=== PATIENT | female | born 1990 | race Caucasian/White ===

== ENCOUNTER 2024-04-18 08:13 | Emergency (ER) | payer OTHER, SELFPAY ==
--- NOTE | ~2024-04-18 | XR_ITS ---
XR chest 2V Ordering provider: Flo Green APRN History: 33 years Female with . productive cough x 2 weeks . Comparison: February 02, 2019 FINDINGS: MEDIASTINUM: The cardiac silhouette is not enlarged. LUNGS: No infiltrates, effusions or pneumothorax. OTHER: No free air under the diaphragm. IMPRESSION: No acute cardiopulmonary pathology. Reviewed, dictated and finalized at location A. E WELL OPERATOR
[2024-04-18 08:33] VITALS: BP 105/83; PULSE 83; RESP 16; TEMP 36.8; O2SAT 100
--- NOTE | 2024-04-18 08:36 | ED.URI ---
HPI - URI/Sore Throat General Chief Complaint: Upper Respiratory Infection Stated Complaint: Sore Throat/Cough Time Seen by Provider: 04/18/24 08:35 Source: patient Mode of arrival: ambulatory Limitations: no limitations History of Present Illness HPI Narrative: Rosalind is a 33 year female patient presenting to the clinic today with complaints of productive cough, lump in her throat, nasal congestion, and feeling as though her breathing isn't right-wheezing over the last 2 weeks. Reports she is coughing up some yellow phlegm. Has been taking an old prescription of Augmentin that is 2 years old-has been taking approximately 5 days worth. Started to feel better but has now fell as though she is becoming more ill while taking the antibiotic MD elicited complaint: sore throat and nasal congestion Related Data Home Medications ?Medication ?Instructions ?Recorded ?Confirmed ?Last Taken ?Type drospirenone 3 mg-ethinyl 1 tablet PO DAILY 12/06/23 12/06/23 Unknown History estradiol 0.02 mg tablet (Vestura (28)) Allergies Allergy/AdvReac Type Severity Reaction Status Date / Time poison hugo extract Allergy Unknown Unknown Verified 12/06/23 11:16 No Known Allergies Allergy Verified 12/06/23 11:16 Review of Systems Review of Systems: Pertinent positives per HPI. Patient denies any fever, chills, rash, headache, visual changes, dizziness, chest pain, palpitations, nausea, vomiting, diarrhea, constipation, abdominal pain, or any urinary issues. [facility] Past Medical History Medical History Normal endoscopy Family History Family History Mother Depression Grandparent Cerebrovascular accident Family history of coronary artery disease Social History Social History Smoking status: Never smoker Second hand tobacco smoke exposure: No Smoking end date: 05/09/13 Alcohol intake: current Substance use: never Substance use type: does not use Lack of Transportation: No Lack of Food: Never True Current Housing: I Have Housing Concerned About Future Housing: No Difficulty Paying Gas/Electric Bills: No Difficulty Paying for Meds: No Currently Unemployed: No Education: Bachelor's Degree Difficulty w/ Childcare or Family Care: No Gender identity (if verbalized by the patient): Female Sexual Orientation (if Verbalized by the Patient): Straight or Heterosexual Spiritual care concerns: No Agree to blood products: Yes Comments At the time of my signature, I reviewed and agree with the nursing past medical, surgical, social, and family history. There is no relevant family history pertinent to the patient complaint. Exam Narrative: General: Well-developed, well nourished, in no apparent distress Head: Normocephalic, atraumatic Eyes: Pupils equally round and reactive to light bilaterally, EOM intact, sclera and conjunctive clear, no discharge, lids normal Ears: TMs intact and clear, ear canals clear, no drainage, grossly hearing normal. Nose: Nares patent, clear nasal discharge, mild inflammation, no sinus tenderness. Mouth: Oral pharynx without lesions or masses, good dentition, MMM. Postnasal drip Neck: Supple, trachea midline, no enlargement of anterior or posterior cervical nodes, no thyroid masses or goiter palpable. Cardio: Regular rate and rhythm, s1 and s2 normal, no murmur appreciated. Resp: Clear to auscultation bilaterally, no rhonchi, rales, wheezing or rubs Course Course Emergency Course: Portions of this record may have been created with voice recognition software. Level of Care: Express Care Visit Vital Signs Vital signs: Vital Signs Temperature 36.8 C 04/18/24 08:33 Pulse Rate 83 04/18/24 08:33 Respiratory Rate 16 04/18/24 08:33 Blood Pressure 105/83 04/18/24 08:33 Pulse Oximetry 100 04/18/24 08:33 Temperature 36.8 C 04/18/24 08:33 Pulse Rate 83 04/18/24 08:33 Respiratory Rate 16 04/18/24 08:33 Blood Pressure 105/83 04/18/24 08:33 Pulse Oximetry 100 04/18/24 08:33 Vital signs reviewed MDM - URI/Sore Throat MDM Narrative Medical decision making narrative: At the time of visit patient is resting comfortably on the exam table. Patient appears to be nontoxic. Labs: Strep test was negative in the clinic today. We will send for culture. Diagnostics: Chest x-rays negative for any acute cardiopulmonary process. Plan: I suspect patient has bronchitis. Prescription for albuterol inhaler, azithromycin, and prednisone was sent to the pharmacy. Supportive measures were discussed with the patient and they voiced understanding discharge instructions and agrees to treatment plan. Return precautions reviewed Differential Diagnosis Differential diagnosis: Likely upper respiratory infection, otitis media, sinusitis, viral infection, bronchitis, influenza, pharyngitis and other (COVID) Imaging Data Radiologist's impression: ITS Impressions Chest X-Ray 04/18/24 08:50 IMPRESSION: No acute cardiopulmonary pathology. Discharge Plan Discharge Clinical Impression: Bronchitis Patient Disposition: Home, Self-Care Condition: Stable Instructions: Antibiotic Form, Acute Bronchitis (ED) Additional Instructions: Chest x-rays negative for any acute cardiopulmonary process Strep test is negative in the clinic today. We will send for culture. Stop taking the old Augmentin medication that your taking. Take prescription medications only as prescribed-albuterol inhaler, prednisone, and azithromycin Increase fluids and stay well hydrated Tylenol/motrin for pain/fever Flonase and OTC antihistamines as directed Vicks vapor rub to open sinuses Sinus rinses for congestion Cepacol spray, cough drops, throat lozenges, warm tea with honey/lemon, gargle salt water to soothe throat BRAT diet for diarrhea Clear liquids x 24 hours then advance as tolerated for nausea/vomiting Go to the ED if you develop a worsening in your condition- high fever not controlled by Tylenol or Motrin, dehydration, weakness, lethargy, shortness of breath, or chest pain. Follow up with your PCP in 3-5 days if symptoms persist. Patient Language: Occitan Prescriptions: New azithromycin 250 mg tablet See Rx Instructions .ROUTE .COMPLEX Qty: 6 0RF Rx Instructions: For 250 mg dose pack: take 500 mg today (day 1), then 250 mg for 4 days (days 2-5) prednisone 20 mg tablet 40 mg PO DAILY 5 Days Qty: 10 0RF albuterol sulfate 90 mcg/actuation HFA aerosol inhaler 2 puff inhalation Q4-6H PRN (Reason: shortness of breath or wheezing) 30 Days Qty: 8.5 0RF No Action drospirenone-ethinyl estradiol [Vestura (28)] 3-0.02 mg tablet 1 tablet PO DAILY Follow-up/Referrals: Uma Quintanilla MD [Primary Care Provider] - Stand Alone Forms: Work/School Release IP Time of Disposition: 08:57 Quality [facility] Nursing Documentation ED NIHSS nursing documentation: reviewed/agree
[2024-04-18 09:40] LABS: EDSTREPNEGPOS1 Negative (Negative)
== END 2024-04-18 09:01 | disposition home or self-care (01) ==
PROVIDERS: Emergency Provider Nurse Practitioner Family; PCP Family Medicine
DX: J40 Bronchitis, not specified as acute or chronic (principal); Z87.891 Personal history of nicotine dependence
CPT/HCPCS: 71046; 87081; 87880; 99213; G0463

== ENCOUNTER 2024-04-26 14:36 | Outpatient (CLI) | payer OTHER, SELFPAY ==
[2024-04-26 15:31] LABS: Alanine Aminotransferase 20 U/L (6-35); Aspartate Amino Transferase 24 U/L (14-36)
== END 2024-04-26 14:37 | disposition home or self-care (01) ==
LOC: ANHLAB 14:38
PROVIDERS: PCP Family Medicine; Visit Provider Podiatrist Foot & Ankle Surgery
DX: B35.1 Tinea unguium (principal)
CPT/HCPCS: 36415; 84450; 84460

== ENCOUNTER 2024-09-18 16:13 | Outpatient (CLI) | payer OTHER, SELFPAY ==
--- OUTSIDE RECORDS SUMMARY | 2024-09-18 16:17 | XMS_ITS | Clinical Summary ---
Author Organization [facility] Address [address] [place] [address] Care Team Providers Care Desk Pens Assembler Name Role Phone Uma Quintanilla MD Primary Care Provider [phone] Allergies No known active allergies Medications Vestura, 28, 3-0.02 mg per tablet Take 1 tablet by mouth daily 11/10/2023 Active Active Problems No known active problems Immunizations Immunization Administration Dates Next Due Tdap 12/08/2021 Medical History Medical History Date Comments Heartburn Social History Tobacco Use Types Packs/Day Years Used Date Smoking Tobacco: Never Smokeless Tobacco: Never Tobacco Cessation:Counseling Given: Not Answered Comments No Sex and Gender Information Value Date Recorded Sex Assigned at Not on file 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 Gender Identity Not on file Sexual Orientation Not on file Obstetrics History Last Filed Vital Signs Vital Sign Reading Time Taken Comments Blood Pressure 125/80 11/29/2023 8:06 AM CDT Pulse 78 11/29/2023 8:06 AM CDT Temperature 36.6 C (97.8 F) 11/29/2023 8:06 AM CDT Respiratory Rate 20 11/29/2023 8:06 AM CDT Oxygen Saturation 99% 11/29/2023 8:06 AM CDT Inhaled Oxygen Concentration - - Weight 60.3 kg (133 lb) 11/29/2023 8:06 AM CDT Height 167.6 cm (5' 6 ) 11/29/2023 8:06 AM CDT Body Mass Index 21.47 11/29/2023 8:06 AM CDT Plan of Treatment Health Maintenance Due Date Last Done Comments Cervical Cancer Screening 1990 Depression Screening 1990 Hepatitis C Screening 1990 Varicella Vaccines (1 of 2 - 13+ 2-dose series) 11/04/2003 Regular Well Visit/Exam 18-64 2008 Influenza Vaccine (#1) 2024 02/21/2018 DTaP/Tdap/Td Vaccine (7 - Td or Tdap) 12/09/2031 12/08/2021, 11/25/1995, 05/15/1992, Additional history exists Hepatitis B Screening Completed 01/17/2001 , 07/18/2000, 06/15/2000 HPV Vaccines Aged Out No longer eligi ble based on patient's age to complete this topic Pneumococcal vaccine <65 Aged Out No longer eligible based on patient's age to complete this topic Insurance [employer] Care Teams Desk Pens Assembler Relationship Specialty Start Date End Date Uma Quintanilla MD PCP - General 04/10/19
--- OUTSIDE RECORDS SUMMARY | 2024-09-18 16:17 | XMS_ITS ---
Author Organization [facility] Address [address] [facility] [address] [place] [address] Care Team Providers Care Buttermaker Helper Name Role Phone Uma Quintanilla MD Primary Care Provider UnavailPayam Koehler Unavailable [phone] Annabelle Webber Unavailable [phone] Allergies No Known Allergies Results Component Value Reference Range Notes LIPASE Reviewed date:09/29/2023 10:38:31 AM Interpretation: Performing Lab:[id number] Lamont Riley MD Notes/Report: NON-FASTING NON-FASTING NON-FASTING NON-FASTING NON-FASTING LIPASE 18 7-60 U/L AMYLASE Reviewed date:09/29/2023 10:38:13 AM Interpretation: Performing Lab:[facility] [id number] Lamont Riley MD Notes/Report: NON-FASTING NON-FASTING NON-FASTING NON-FASTING NON-FASTING AMYLASE 51 21-101 U/L CMP: COMPLETE METABOLIC PANE L Reviewed date:09/29/2023 10:38:45 AM Interpretation: Performing Lab:[facility] [id number] Lamont Riley MD Notes/Report: NON-FASTING NON-FASTING NON-FASTING NON-FASTING NON-FASTING GLUCOSE 87 65-99 mg/dL Fasting reference interval UREA NITROGEN (BUN) 12 7-25 mg/dL CREATININE 0.78 0.50-0.97 mg/dL EGFR 103 > OR = 60 mL/min/1.73m2 BUN/CREATININE RATIO SEE NOTE: 6-22 (calc) Not Reported: BUN and Creatinine are within reference range. SODIUM 139 135-146 mmol/L POTASSIUM 4.1 3.5-5.3 mmol/L CHLORIDE 106 98-110 mmol/L CARBON DIOXIDE 23 20-32 mmol/L CALCIUM 8.9 8.6-10.2 mg/dL PROTEIN, TOTAL 6.6 6.1-8.1 g/dL ALBUMIN 4.1 3.6-5.1 g/dL GLOBULIN 2.5 1.9-3.7 g/dL (calc) ALBUMIN/GLOBULIN RATIO 1.6 1.0-2.5 (calc) BILIRUBIN, TOTAL 0.3 0.2-1.2 mg/dL ALKALINE PHOSPHATASE 48 31-125 U/L AST 14 10-30 U/L ALT 17 6-29 U/L CBC With Differential/Platel et Reviewed date:09/29/2023 10:58:03 AM Interpretation: Performing Lab:[facility], [id number], [id number] Lamont Riley MD Notes/Report: NON-FASTING NON-FASTING NON-FASTING NON-FASTING NON-FASTING WHITE BLOOD CELL COUNT 9.0 3.8-10.8 Thousand/ uL RED BLOOD CELL COUNT 4.48 3.80-5.10 Million/uL HEMOGLOBIN 13.0 11.7-15.5 g/dL HEMATOCRIT 40.0 35.0-45.0 % MCV 89.3 80.0-100.0 fL MCH 29.0 27.0-33.0 pg MCHC 32.5 32.0-36.0 g/dL RDW 12.2 11.0-15.0 % PLATELET COUNT 95 140-400 Thousand/uL MPV 12.2 7.5-12.5 fL ABSOLUTE NEUTROPHILS 5958 4262-3200 cells/uL ABSOLUTE LYMPHOCYTES 2367 850-3900 cells/uL ABSOLUTE MONOCYTES 549 200-950 cells/uL ABSOLUTE EOSINOPHILS 72 15-500 cells/uL ABSOLUTE BASOPHILS 54 0-200 cells/uL NEUTROPHILS 66.2 LYMPHOCYTES 26.3 MONOCYTES 6.1 EOSINOPHILS 0.8 BASOPHILS 0.6 CRP Reviewed date:09/29/2023 10:38:22 AM Interpretation: Performing Lab:[place], [id number]iz, [id number] Lamont Riley MD Notes/Report: NON-FASTING NON-FASTING NON-FASTING NON-FASTING NON-FASTING C-REACTIVE PROTEIN <3.0 <8.0 mg/L Ultrasound ABDOMEN COMPLETE Reviewed date:09/29/2023 09:54:53 AM Interpretation: Performing Lab: Notes/Report: REASON FOR VISIT Diarrhea, Abdominal Pain, Bloating, Belching, Change in Stool Color Medications Medication SIG (Take, Route, Frequency, Duration) Notes Start Date End Date Status OTC/Vitamins prebiotic/probiotic Active Social History Tobacco Use: Social History Observation Description Date Details (start date - stop date) Former Smoker NA - NA Tobacco Use/Smoking Question Answer Notes Are you a former smoker How long has it been since you last smoked? 5-10 years Problems Problem Type SNOMED Code ICD Code Onset Dates Problem Status W/U Status Risk Notes Problem [id number] Nausea and vomiting (R11.2) Active confirmed Problem 384778103 Bloating (R14.0) Active confirmed Vital Signs Height 66 in 09/27/2023 Weight 131 lbs 09/27/2023 BMI 21.14 kg/m2 09/27/2023 Encounters Encounter Location Date Provider Diagnosis [facility], [address] May [address] [place] [id number] 09/27/2023 Annabelle Schild Bloating R14.0 ; Nausea and vomiting R11.2 and Nonulcer dyspepsia K30 Assessments Encounter Date Diagnosis (ICD Code) Assessment Notes Treatment Notes Treatment Clinical Notes Section Notes 09/27/2023 Bloating (ICD-10 - R14.0) NAUSEA/VOMITING /BLOATING: She had a recent episode of nausea and vomiting followed by several days of bloating after eating [employer]aco [employer]. Symptoms sound consistent with food poisoning. She followed a bland diet for several days and is happy to report that most of the symptoms have resolved. NONULCER DYSPEPSIA: She has a history of chronic nonulcer dyspepsia with symptoms of abdominal discomfort, bloating, and belching. Remote endoscopy and esophageal manometry study in 2019 were unrevealing. She had minimal improvement with buspirone so she discontinued it. 09/27/2023 Nausea and vomiting (ICD-10 - R11.2) NAUSEA/VOMITING /BLOATING: She had a recent episode of nausea and vomiting followed by several days of bloating after eating [employer]. Symptoms sound consistent with food poisoning. She followed a bland diet for several days and is happy to report that most of the symptoms have resolved. NONULCER DYSPEPSIA: She has a history of chronic nonulcer dyspepsia with symptoms of abdominal discomfort, bloating, and belching. Remote endoscopy and esophageal manometry study in 2019 were unrevealing. She had minimal improvement with buspirone so she discontinued it. 09/27/2023 Nonulcer dyspepsia (ICD-10 - K30) NAUSEA/VOMITING /BLOATING: She had a recent episode of nausea and vomiting followed by several days of bloating after eating Taco Sanders. Symptoms sound consistent with food poisoning. She followed a bland diet for several days and is happy to report that most of the symptoms have resolved. NONULCER DYSPEPSIA: She has a history of chronic nonulcer dyspepsia with symptoms of abdominal discomfort, bloating, and belching. Remote endoscopy and esophageal manometry study in 2019 were unrevealing. She had minimal improvement with buspirone so she discontinued it. 09/27/2023 Other After my visit with Ms. Aguirre, I recommend the followin. 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 2. She was encouraged to continue her probiotic and to take Pepcid for 4 to 6 weeks to help with lingering stomach irritation. 3. She will obtain labs including CBC, CMP, CRP, amylase, and lipase. 4. Schedule complete abdominal ultrasound. 5. She will report any new or alarming symptoms. 6. Further thoughts to follow. NAUSEA/VOMITING /BLOATING: She had a recent episode of nausea and vomiting followed by several days of bloating after eating [employer]. Symptoms sound consistent with food poisoning. She followed a bland diet for several days and is happy to report that most of the symptoms have resolved. NONULCER DYSPEPSIA: She has a history of chronic nonulcer dyspepsia with symptoms of abdominal discomfort, bloating, and belching. Remote endoscopy and esophageal manometry study in 2019 were unrevealing. She had minimal improvement with buspirone so she discontinued it. Plan Of Treatment Next Appt Details Follow Up: prn, Reason: Progress Notes * Rosalind AGUIRRE PDOB: [birth year] (32 yo F)Acc No.[id number]:09/27/2023 Patient: Rosalind Glass Provider: VAUGHN Clarke :1990 A ge:32 Y S ex:Female Date:09/27/2023 Address:[address] [facility] [address] [place], [place] [id number] Pcp:Uma Quintanilla MD Subjective: * Chief Complaints: * D iarrheaAbdominal PainBloatingBelchingChange in Stool Color * HPI: H PI: Ms. Aguirre is a pleasant 32-year-old female previously seen for probable nonulcer dyspepsia. She had initial improvement with buspirone a few years ago, but ultimately discontinued the medication because she did not think it was significantly helpful. She was seen in the office in January because her dentist told her she had signs of acid reflux. She has a history of chronic belching, but denies classic symptoms of reflux. Prior endoscopy in 2018 was normal. At her appointment in January last year, she was started on pantoprazole 40 mg daily, but discontinued the medication after a month, because she had no change in symptoms. She also had a negative celiac blood test, SIBO breath test, and pancreatic elastase. A bout 2 weeks ago she ate Taco Sanders late at night and woke up at 2 AM vomiting. She had multiple vomiting episodes over the course of several hours. For about 5 days afterward she experienced significant abdominal bloating, belching, and sour taste in her mouth. She tried taking Tums, but did not have any improvement. She also reported having shailesh colored stools for several days. She followed a bland diet for a couple of days. T sander, she reports that her bloating has improved. She is no longer experiencing any nausea or vomiting episodes. Her bowel movements are still very loose, but have returned to a normal brown color. She denies having any melena or hematochezia. She has been taking a prebiotic and probiotic for the past month. * ROS: G I Bleeding: Melena N o. H ematochezia N o. H ematemesis No. A nemia N o. G I-Stomach: Nausea/Emesis N o. P ain N o. P UD N o. Anorexia N o. G I-Esophageal: Dysphagia N o. O dynophagia N o. C hest Pain No. G ER Sx Y es. G I-Liver/GB: Jaundice N o. H epatitis N o. G allstones N o. P ancreatitis N o. G I-Colon: Colitis/IBS Y es. D iarrhea N o. C onstipation N o. H emorrhoids N o. G eneral/Constitutional: Fever N o. C hills N o. W eight Loss N o. S kin: Rash N o. P ruritus N o. I cterus N o. P hotosensitivity N o. E NT: Diplopia N o. V isual Loss N o. T innitus N o. V ertigo N o. D eafness N o. P oor Dentition N o. H ematology: Easy Bruising N o. H emophilia N o. H ematologic Malignancy N o. L ymphadenopathy N o. H istory of Petechia N o. A nemia No. C ardiovascular: Palpitations N o. S yncope N o. P ND N o. LUX N o. O rthopnea N o. C hest Pain N o. R espiratory: Cough N o. S putum Production N o. H emoptysis No. W heezing N o. T B N o. S OB N o. N eurologic: Stroke N o. S eizure Disorder N o. T remor N o. P aralysis N o. S yncope N o. G enitourinary: Dysuria N o. P olyuria N o. I ncontinence N o. R enal Failure N o. H ematuria N o. M usculoskeletal: Joint Pain N o. S welling N o. S tiffness N o. M uscle Weakness N o. M yalgia N o. E ndocrine: Thyroid Disease N o. D iabetes N o. P olyphagia No. P olydipsia N o. P sychiatric: Delusions N o. H allucinations N o. S uicidal Ideations N o. A llergy/Immunology: Hives N o. C hronic Sinusitis N o. H istory of Anaphylaxis N o. * Medical History: * Surgical History: E ndoscopy:Normal exam. 03/2019Suction Curettage for Axillary Hyperhidrosis * Hospitalization/Major Diagno stic Procedure: D enies Past Hospitalization * Family History: N on-Contributory. Denies family history of colon cancer and colon polyps. * Social History: T obacco Use: T obacco Use/Smoking A re you a f ormer smoker H ow long has it been since you last smoked? 5-10 years D rugs/Alcohol: D o you Drink Alcohol?: Yes, Occasionally. Drugs: No. Do you Smoke Marijuana?: No. S ocial History: M arital Status: Single. 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 Children: None. * Medications: T akingOTC/Vitamins , Notes: prebiotic/probioticMedication List reviewed and reconciled with the patientTaking OTC/Vitamins , Notes: prebiotic/probioticMedication List reviewed and reconciled with the patient * Allergies: N .K.D.A.no[Allergies Verified] Objective: * Vitals: H t: 66 in, Wt:131 lbs, BMI:21.14 Index. * Examination: P hysical Examination: GENERAL: P leasant. Appears stated age, in no apparent distress. SKIN: N o rash, ecchymoses, petechial, or telangiectasia. HEENT: Normocephalic, EOMI, Nasal & buccal mucosa clear. NECK: Supple without masses., Normal Range of Motion, No jugular venous distention. LYMPH NODES: No cervical, supraclavicular, or axillary lymphadenopathy. CARDIAC: RRR without murmur, gallop, or rub. PULMONARY: Clear to auscultation and percussion bilaterally. ABDOMEN: B S positive, soft, non-tender, No masses, organomegaly, rebound, or ascites. EXTREMITIES: N o cyanosis, clubbing, or edema. NEUROLOGIC: A lert and oriented x3, No asterixis, Nonfocal examination. C QM Exceptions: Influenza Vaccine not administered: Declan payne: M edical Reason T ype of Medical Reason: N ot indicated Pneumococcal Vaccine not administered: Declan payne: M edical Reason T ype of Medical Reason: N ot indicated Assessment: * Assessment: 1. N ausea and vomiting - R11.2 (Primary) 2 . B loating - R14.0 3 . N onulcer dyspepsia - K30 NAUSEA/VOMITING/BLOATING: Sh prerna had a recent episode of nausea and vomiting followed by several days of bloating after eating [employer]aco Sanders. Symptoms sound consistent with food poisoning. She followed a bland diet for several days and is happy to report that most of the symptoms have resolved. NONULCER DYSPEPSIA: She has a history of chronic nonulcer dyspepsia with symptoms of abdominal discomfort, bloating, and belching. Remote endoscopy and esophageal manometry study in 2019 were unrevealing. She had minimal improvement with buspirone so she discontinued it. Plan: * Treatment: 2. B loating I maging: Ultrasound ABDOMEN COMPLETE 3. O thers Clinical Notes: After my visit with Ms. Aguirre, I recommend the followin. 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 2. She was encouraged to continue her probiotic and to take Pepcid for 4 to 6 weeks to help with lingering stomach irritation. 3. She will obtain labs including CBC, CMP, CRP, amylase, and lipase. 4. Schedule complete abdominal ultrasound. 5. She will report any new or alarming symptoms. 6. Further thoughts to follow. * Procedure Codes: 3 6415 VENIPUNCT, ROUTINE*[id number] BILINGUAL OFFICE ASSISTANT Office Visit, Est Pt., Level 3 * Preventive Medicine: Counseling: B mi Care goal follow-up plan: BMI management provided N o * Follow Up: p rn * Images: * Sign off status: Completed true * Provider: VAUGHN Clarke Date: 09/27/2023 Generated for Bubba reyes/Ricardo/Edwina on: 0 09/18/2024 04:17 PM CDT
--- OUTSIDE RECORDS SUMMARY | 2024-09-18 16:17 | XMS_ITS | Patient Health Record ---
Author Organization [employer] Address [address] [facility] [address] [place] [address] Care Team Providers Care Building Performance Consultant Name Role Phone Uma Quintanilla MD Primary Care Provider UnavailPayam Koehler Unavailable [phone] Annabelle Webber Unavailable [phone] Allergies No Known Allergies Results Component Value Reference Range Notes LIPASE Reviewed date:09/29/2023 10:38:31 AM Interpretation: Performing Lab:[facility]Michael [id number] Lamont Riley MD Notes/Report: NON-FASTING NON-FASTING NON-FASTING NON-FASTING NON-FASTING LIPASE 18 7-60 U/L AMYLASE Reviewed date:09/29/2023 10:38:13 AM Interpretation: Performing Lab:[facility]Michael [id number] Lamont Riley MD Notes/Report: NON-FASTING NON-FASTING NON-FASTING NON-FASTING NON-FASTING AMYLASE 51 21-101 U/L CMP: COMPLETE METABOLIC PANE L Reviewed date:09/29/2023 10:38:45 AM Interpretation: Performing Lab:[facility]Michael [id number] Lamont Riley MD Notes/Report: NON-FASTING NON-FASTING NON-FASTING [...] et Reviewed date:09/29/2023 10:58:03 AM Interpretation: Performing Lab:[place], [facility]-[id number] Kaz Galo, [id number] Lamont Riley MD Notes/Report: NON-FASTING NON-FASTING NON-FASTING NON-FASTING NON-FASTING WHITE BLOOD CELL COUNT 9.0 3.8-10.8 Thousand/ uL RED BLOOD CELL COUNT 4.48 3.80-5.10 Million/uL HEMOGLOBIN 13.0 11.7-15.5 g/dL HEMATOCRIT 40.0 35.0-45.0 % MCV 89.3 80.0-100.0 fL MCH 29.0 27.0-33.0 pg MCHC 32.5 32.0-36.0 g/dL RDW 12.2 11.0-15.0 % PLATELET COUNT 95 140-400 Thousand/uL MPV 12.2 7.5-12.5 fL ABSOLUTE NEUTROPHILS 5958 1144-1178 cells/uL ABSOLUTE LYMPHOCYTES 2367 850-3900 cells/uL ABSOLUTE MONOCYTES 549 200-950 cells/uL ABSOLUTE EOSINOPHILS 72 15-500 cells/uL ABSOLUTE BASOPHILS 54 0-200 cells/uL NEUTROPHILS 66.2 LYMPHOCYTES 26.3 MONOCYTES 6.1 EOSINOPHILS 0.8 BASOPHILS 0.6 CRP Reviewed date:09/29/2023 10:38:22 AM Interpretation: Performing Lab:[place], [id number] Kaz Ortiz, [id number] Lamont Riley MD Notes/Report: NON-FASTING NON-FASTING NON-FASTING NON-FASTING NON-FASTING C-REACTIVE PROTEIN <3.0 <8.0 mg/L Ultrasound ABDOMEN COMPLETE Reviewed date:09/29/2023 09:54:53 AM Interpretation: Performing Lab: Notes/Report: Reason For Referral No Information Medications Medication SIG (Take, Route, Frequency, Duration) Notes Start Date End Date Status OTC/Vitamins prebiotic/probiotic Active Social History Tobacco Use: Social History Observation Description Date Details (start date - stop date) Former Smoker NA - NA Tobacco Use/Smoking Question Answer Notes Are you a former smoker How long has it been since you last smoked? 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 Problems Problem Type SNOMED Code ICD Code Onset Dates Problem Status W/U Status Risk Notes Problem 063283940 Bloating (R14.0) Active confirmed Problem 25774931 Dysphagia (R13.10) Active confirmed Problem 3820573 Nonulcer dyspepsia (K30) Active confirmed Problem 27324375 Nausea and vomiting (R11.2) Active confirmed Problem 24670472 Steatorrhea (K90.9) Active confirmed Problem 059879301 Low platelet count (D69.6) Active confirmed Vital Signs Height 66 in 09/27/2023 Weight 131 lbs 09/27/2023 BMI 21.14 kg/m2 09/27/2023 Encounters Encounter Location Date Provider Diagnosis [facility], [address] SAMINA Rodriguez [address] 09/27/2023 Annabelle Hogannilda Bloating R14.0 ; Nausea and vomiting R11.2 and Nonulcer dyspepsia K30 [facility], [address] SAMINA Rodriguez [address] 09/23/2023 Payam Jiang [facility], [facility] [address] [place] [address] 09/29/2023 Payam Jiang Low platelet count D69.6 Assessments Encounter Date Diagnosis (ICD Code) Assessment [...] improvement with buspirone so she discontinued it. 09/29/2023 Low platelet count (ICD-10 - D69.6) 09/27/2023 Nonulcer dyspepsia (ICD-10 - K30) NAUSEA/VOMITING [...] so she discontinued it. Plan Of Treatment Pending Test Test Name Order Date Upper Endoscopy 02/16/2019 Initiate SIBO 01/13/2023 Future Test Test Name Order Date CBC With Differential/Platelet 4 Insurance Providers Payer Name Payer Address Payer Phone Subscriber Number Group Number Insured Name Patient Relationship to Insured Coverage Start Date Coverage End Date [employer] E2 [address] [place] [phone] [id number] Rosalind Aguirre Self - patient is the insured Medical (General) History Medical History History ICD Code GERD Surgical History Surgery Date(Month/Year) Endoscopy:Normal exam. 03/2019 Suction Curettage for Axillary Hyperhidr osis
--- OUTSIDE RECORDS SUMMARY | 2024-09-18 16:17 | XMS_ITS | Clinical Summary ---
Author Organization [facility] Address [address] [place] [address] Care Team Providers Care Nursing Home Director Name Role Phone Zari Alves MD Primary Care Provider [phone] Source Comments [facility],non-owned Affiliates and Associated Physician Practices is amultiple site organization consisting of ambulatory clinics and hospital sitesin [place], [place], [place] and [place]. This disclosure is being madepursuant to the Care Everywhere program and may not contain all information available regarding this patient. Last updated 18.[facility] [employer] Allergies No known active allergies Medications * Be aware that medications may not be up to date on this document. Alwaysverify current medications with the patient. hydrocodone-acet aminophen (NORCO) 5-325 MG tablet Take 1-2 Tabs by mouth every 6 hours as needed for Pain. 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 Gender Identity Not on file Sexual Orientation Not on file Last Filed Vital Signs Vital Sign Reading Time Taken Comments Blood Pressure 118/92 12/07/2021 9:11 PM CDT Pulse 91 12/07/2021 9:11 PM CDT Temperature 36.8 C (98.2 F) 12/07/2021 9:11 PM CDT Respiratory Rate 18 12/07/2021 9:11 PM CDT Oxygen Saturation 100% 12/07/2021 9:11 PM CDT Inhaled Oxygen Concentration - - Weight 63.5 kg (140 lb) 12/07/2021 9:11 PM CDT Height 167.6 cm (5' 6 ) 12/07/2021 9:11 PM CDT Body Mass Index 22.6 12/07/2021 9:11 PM CDT Plan of Treatment Health Maintenance Due Date Last Done Comments PAP SMEAR 1990 HIV SCREENING 2005 HEPATITIS C SCREENING 10/29/2008 DTAP/TDAP/TD VACCINES (1 - Tdap) 2009 HEPATITIS B VACCINE (1 of 3 - 19+ 3-dose series) 2009 PNEUMOCOCCAL VACCINE (1 of 2 - PCV) 2009 COVID-19 VACCINE (3 - 2023-2 5 season) 2024 08/28/2020, 08/05/2020 DEPRESSION SCREENING 05/09/2024 INFLUENZA VACCINE (Season Ended) 2025 02/21/2018 ZOSTER VACCINE (1 of 2) 2040 HIB VACCINE Aged Out No longer eligi ble based on patient's age to complete this topic HPV VACCINE Aged Out No longer eligi ble based on patient's age to complete this topic MENINGOCOCCAL (Group B) VACCINE SHARED DECISION-MAKING Aged Out No longer eligible based on patient's age to complete this topic MENINGOCOCCAL GROUPS A/C/Y/W VACCINE Aged Out No longer eligible b ased on patient's age to complete this topic Care Teams Nursing Home Director Relationship Specialty Start Date End Date Zari Alves MD [address] [place] [id number] PCP - General Pediatrics 04/10/12
--- OUTSIDE RECORDS SUMMARY | 2024-09-18 16:17 | XMS_ITS ---
Author Organization [facility] Address [address] [place] [address] [address] [place] [address] Care Team Providers Care Border Police Name Role Phone Uma Quintanilla MD Primary Care Provider Payam Almonte [facility] [phone] REASON FOR VISIT 09/26 Add on for [place] Encounters Encounter Location Date Provider Diagnosis [facility], [address] [place] [address] 09/23/2023 Payam Jiang Plan Of Treatment No Information Progress Notes * Rosalind VASQUES PDOB: [birth year] (32 yo F)Acc No.[id number]:09/23/2023 Patient: Rosalind Glass Milena :1990 A ge:32 Y S ex:Female Address:[facility] [address] [place] [address], [address] * true * Date: Generated for Printi ng/Faxing/eTransmitting on: 0 09/18/2024 04:17 PM CDT
--- OUTSIDE RECORDS SUMMARY | 2024-09-18 16:17 | XMS_ITS | Clinical Summary ---
Author Organization [facility] [facility] Address [address] 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
--- OUTSIDE RECORDS SUMMARY | 2024-09-18 16:17 | XMS_ITS | Referral Summary ---
Author Organization [facility] Address [address] [place] [address] Care Team Providers Care Ict Support And Test Engineers Name Role Phone Uma Quintanilla MD Primary Care Provider [phone] Allergies No known active allergies Medications Vestura, 28, 3-0.02 mg per tablet Take 1 tablet by mouth daily 11/10/2023 Active Active Problems No known active problems Immunizations Immunization Administration Dates Next Due Tdap 12/08/2021 Social History Tobacco Use Types Packs/Day Years Used Date Smoking Tobacco: Never Smokeless Tobacco: Never Tobacco Cessation:Counseling Given: Not Answered Comments No Sex and Gender Information Value Date Recorded Sex Assigned at Not on file Legal Sex Female 5:36 AM COAGULANT DIPPER Gender Identity Not on file Sexual Orientation [...] 11/29/2023 8:06 AM CDT Plan of Treatment Not on file Insurance CIGNA CIGNA Care Teams Ict Support And Test Engineers Relationship Specialty Start Date End Date Uma Quintanilla MD PCP - General 04/10/19
--- OUTSIDE RECORDS SUMMARY | 2024-09-18 16:17 | XMS_ITS | Encounter Summary ---
Author Organization [employer] Address [address] [place] [address] Care Team Providers Care Dirt Supervisor Name Role Phone Unavailable Primary Care Provider Unavailabl e Encounter Details Date Type Department Care Team (Late st Contact Info) Description 12/16/2006 Outpatient Historical [facility] STRichrad Peterson, FELY [address] [address] [place], Authorized P NO ADDRESS ON FILE Unspecified Disturbance of Conduct (Primary Dx) Social History Tobacco Use Types Packs/Day Years Used Date Smoking Tobacco: Never Assessed Comments Unknown Sex and Gender Information Value Date Recorded Sex Assigned at Not on file 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 Gender Identity Not on file Sexual Orientation Not on file documented as of this encounter Plan of Treatment Not on file documented as of this encounter Procedures Procedure Name Priority Date/Time Associated Diagnosis Comments DRUG SCREEN, URINE Routine 12/16/2006 10 :27 PM CDT URINALYSIS WITH REFLEX CULTURE Routine 12/16/2006 10:26 PM CDT URINALYSIS W/REFLEX MICROSCOPIC Routine 12/16/2006 10:26 PM CDT ETHANOL LEVEL Routine 12/16/2006 10:26 PM CDT ACETAMINOPHEN LEVEL Routine 12/16/2006 1 0:26 PM CDT SALICYLATE LEVEL Routine 12/16/2006 10:2 6 PM CDT COMPREHENSIVE METABOLIC PANEL Routine 12/16/2006 10:26 PM CDT documented in this encounter Results * DRUG SCREEN, URINE (12/16/2006 10:27 PM CDT) COMMENT, TOXICOLOGY See Separate Comment INTERFACE SYSTEM Comment: Urine sample was not handled as a legal specimen and was received without a chain of custody. The result should be used only for medical purposes. False positive and erroneous results can occur due to cross-reacting sub stances and other factors. Depending on the clinical context, confirmation of all presumptive positive results by a more specific alternate method is recommended. A negative result indicates the analyte, if present, is below the screening threshold. Drug Ref. Range Screening Threshold Amphetamines Negative 1000 ng/mL Barbituates Negative 200 ng/mL Benzodiazepines Negative 300 ng/mL Cannabinoids Negative 50 ng/mL Cocaine Metabolites Negative 300 ng/mL Opiates Negative 300 ng/mL Phencycldine Negative 25 ng/mL The cut-off threshold, known cross-reactive compounds, drugs,and specificity information for each of the urine drugs of abuse are available on the [facility] [employer] at: [email or web address] state [email or web address] [email or web address] [employer]/Best [email or web address] Select: Drugs of Abuse ? [facility] To inquire about any potential cross-reactivity of a specific drug not listed at this site, please contact the Chemistry Lab at . AMPHETAMINE QUAL, URINE Negative Negative INTERFACE SYSTEM BARBITURATE QUAL, URINE Negative Negative INTERFACE SYSTEM BENZODIAZEPINE QUAL, URINE Negative Negative INTERFACE SYSTEM CANNABINOIDS QUAL, URINE Presumptive Positive Negative INTERFACE SYSTEM COCAINE QUAL URINE Negative Negative INTERFACE SYSTEM OPIATE QUAL, URINE Negative Negative INTERFACE SYSTEM PCP QUAL, URINE Negative Negative INTE RFACE SYSTEM 12/16/2006 10:2 7 PM CDT us Richard Kaminski NP URINE ORDERABLES Edited INTERFACE SYSTEM Refer to clinic/hospital department * (ABNORMAL) URINALYSIS (12/16/2006 10:26 PM CDT) COLOR UA Yellow INTERFACE SYSTEM CLARITY UA Cloudy(A) Clear INTERFACE SYSTEM SPECIFIC GRAVITY UA 1.011 1.001 - 1.035 INTERFACE SYSTEM PH UA 8.5(H) 5.0 - 8.0 INTERFACE SYSTEM LEUKOCYTE ESTERASE UA Negative Negative INTERFACE SYSTEM NITRITE UA Negative Negative INTERFACE SYSTEM PROTEIN UA Negative Negative INTERFACE SYSTEM GLUCOSE UA Negative Negative INTERFACE SYSTEM KETONES UA Negative Negative INTERFACE SYSTEM UROBILINOGEN UA <1 <=1 mg/dL INTE RFACE SYSTEM BILIRUBIN UA Negative Negative INTERFA CE SYSTEM BLOOD UA Negative Negative INTERFACE SYSTEM WBC UA 3 0 - 5 /HPF INTERFACE SYSTEM BACTERIA UA 4+(A) None Seen /HPF INTERFACE SYSTEM EPITHELIAL CELLS, URINE 0-2 /HPF INTERFACE SYSTEM AMORPHOUS CRYSTAL Few /HPF INTERFACE SYSTEM 12/16/2006 10:2 6 PM CDT Result [facility] Richard Kaminski NP URINE ORDERABLES Edited Performing Organization Address [facility] Number INTERFACE SYSTEM Refer to clinic/hospital department * URINALYSIS WITH REFLEX CULTURE (12/16/2006 10:26 PM CDT) URINE CULTURE ORDER Not indicated INTERFACE SYSTEM Comment: Criteria for a reflex culture include one or more of the following: Abn ormal nitrite, leukocyte esterase, WBCs or RBCs. Lack of qualifying criteria does not exclude the possiblity of a urinary tract infection. Dilute urine, drug interference, etc. may decrease the sensitivity of the criteria analytes. 12/16/2006 10:2 6 PM CDT Result [facility] us Richard Kaminski NP URINE ORDERABLES Edited Performing Organization Address [facility] Phone Number INTERFACE SYSTEM Refer to clinic/hospital department * (ABNORMAL) SALICYLATE LEVEL (12/16/2006 10:26 PM CDT) SALICYLATE LEVEL <0.8(L) 2.0 - 25.0 mg/dL INTERFACE SYSTEM 12/16/2006 10:2 6 PM CDT Result [facility] Richard Kaminski NP CHEMISTRY ORDERABLES Edited Performing Organization Address [facility] Phone Number INTERFACE SYSTEM Refer to clinic/hospital department * (ABNORMAL) COMPREHENSIVE METABOLIC PANEL (12/16/2006 10:26 PM CDT) GLUCOSE 98 60 - 110 mg/dL INTERFACE SYSTEM CREATININE 0.66 0.51 - 0.95 mg/dL INTERFACE SYSTEM CALCIUM 9.0 8.4 - 10.2 mg/dL INTERFACE SYSTEM ALKALINE PHOSPHATASE 78 35 - 187 U/L INTERFACE SYSTEM AST 18 12 - 32 U/L INTERFACE SYSTEM ALT 9 0 - 31 U/L INTERFACE SYSTEM TOTAL PROTEIN 7.7 6.3 - 8.6 g/dL INTERFACE SYSTEM ALBUMIN 4.9(H) 3.2 - 4.5 g/dL INTERFACE SYSTEM BILIRUBIN TOTAL 0.5 0.2 - 1.0 mg/dL INTERFACE SYSTEM BUN 7 6 - 20 mg/dL INTERFACE SYSTEM SODIUM 140 135 - 145 mmol/L INTERFACE SYSTEM POTASSIUM 3.6 3.5 - 4.9 mmol/L INTERFACE SYSTEM CHLORIDE 103 96 - 108 mmol/L INTERFACE SYSTEM CO2 26 22 - 30 mmol/L INTERFACE SYSTEM GFR, N/A:MDRD equation validated for pts. >18 yrs. >=60 mL/min/1 .7 sq meter INTERFACE SYSTEM GFR N/A:MDRD equation validated for pts. >18 yrs. >=60 mL/min/1 .7 sq meter INTERFACE SYSTEM Comment: Estimated GFR rate interpretative information for both Americans and non- Americans is available on the [facility] Intranet at: [email or web address] obici [email or web address] [email or web address] Select: Lab Policies and Procedures Select: Reference Ranges - GFR 12/16/2006 10:2 6 PM CDT Richard Kaminski NP CHEMISTRY ORDERABLES Edited Performing Organization Address City/[facility] Co de Phone Number INTERFACE SYSTEM Refer to clinic/hospital department * (ABNORMAL) ACETAMINOPHEN LEVEL (12/16/2006 10:26 PM CDT) ACETAMINOPHEN LEVEL <0.7(L) 10.0 - 20.0 ug/mL INTERFACE SYSTEM 12/16/2006 10:2 6 PM CDT Richard Kaminski SERVICE DESK AGENT CHEMISTRY ORDERABLES Edited Performing Organization Address [facility] Co de Phone Number INTERFACE SYSTEM Refer to clinic/hospital department * ETHANOL (12/16/2006 10:26 PM CDT) ETHANOL <10 mg/dL INTERFACE SYSTEM Comment: Reference Range: Less than 10 mg/dL 12/16/2006 10:2 6 PM CDT us Richard Kaminski NP CHEMISTRY ORDERABLES Edited INTERFACE SYSTEM Refer to clinic/hospital department documented in this encounter Visit Diagnoses Diagnosis Unspecified disturbance of conduct- Primary documented in this encounter
--- OUTSIDE RECORDS SUMMARY | 2024-09-18 16:17 | XMS_ITS | Clinical Summary ---
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 Gender Identity Not on file Sexual Orientation Not on file Plan of Treatment Health Maintenance Due Date Last Done Comments Cervical Cancer Screening Pa p Smear (Age 30 to 64) Every 3 Years 1990 Annual Physical 1993 Hepatitis C 2008 DTaP, Tdap and Td Vaccines ( 1 - Tdap) 2009 Hepatitis B Vaccines (1 of 3 - 19+ 3-dose series) 2009 Cervical Cancer Screening Pa p with HPV Testing (Age 30 to 64) Every 5 Years 2020 Cervical Cancer Screening with HPV 2020 COVID-19 Vaccine ( - 2023-2 5 season) 2024 HPV Vaccines Aged Out No longer eligi ble based on patient's age to complete this topic Meningococcal B Vaccine Aged Out No l onger eligible based on patient's age to complete this topic Meningococcal Vaccine Aged Out No leroy estella eligible based on patient's age to complete this topic Pneumococcal Vaccine: Pediat rics (0 to 5 Years) and At-Risk Patients (6 to 49 Years) Aged Out No longer eligible b ased on patient's age to complete this topic RSV Immunizations Under 20 Months Aged Out No longer eligible based on patient's age to complete this topic
--- OUTSIDE RECORDS SUMMARY | 2024-09-18 16:17 | XMS_ITS ---
Author Organization [employer] [facility] Address [address] [place] [address] [address] [place] [address] Care Team Providers Care Wire Insulator Name Role Phone Uma Quintanilla MD Primary Care Provider Payam Almonte [facility] [phone] REASON FOR VISIT US results Problems Problem Type SNOMED Code ICD Code Onset Dates Problem Status W/U Status Risk Notes Problem 418723892 Low platelet count (D69.6) Active confirmed Encounters Encounter [facility] [place] [address] 09/29/2023 Payam Jiang Low platelet count D69.6 Assessments Encounter Date Diagnosis (ICD Code) Assessment Notes Treatment Notes Treatment Clinical Notes Section Notes 09/29/2023 Low platelet count (ICD-10 - D69.6) Plan Of Treatment Future Test Test Name Order Date CBC With Differential/Platelet Progress Notes * VASQUES Rosalind PDOB: 1 (32 yo F)Acc No.[id number]:09/29/2023 Patient: Rosalind Glass :1990 A ge:32 Y S ex:Female Address:[address] [facility] , [place], [address] Subjective: * Chief Complaints: * U S results * Medical History: * Surgical History: * Hospitalization/Major Diagno stic Procedure: * Medications: Objective: Assessment: * Assessment: 1. L ow platelet count - D69.6 (Primary) Plan: * Treatment: * Procedure Codes: * true * Date: Generated for Bubba Garcia/Edwina on: 0 09/18/2024 04:17 PM CDT
[2024-09-22 17:08] LABS: Herpes Simplex Type 1 DNA PCR Not Detected (Not Detected); Herpes Simplex Type 2 DNA PCR Not Detected (Not Detected)
== END 2024-09-18 16:14 | disposition home or self-care (01) ==
PROVIDERS: PCP Family Medicine; Visit Provider Obstetrics & Gynecology Gynecology
DX: Z11.3 Encounter for screening for infections with a predominantly sexual mode of transmission (principal)
CPT/HCPCS: 36415; 87529

== ENCOUNTER 2024-10-23 13:19 | Outpatient (CLI) | payer OTHER, SELFPAY ==
--- OUTSIDE RECORDS SUMMARY | 2024-10-23 13:55 | XMS_ITS | Clinical Summary ---
Author Organization [facility] Address [address] [place] [address] Care Team Providers Care Vet Tech Name Role Phone Zari Alves MD Primary Care Provider [phone] Source Comments [facility],non-owned Affiliates and Associated Physician Practices is amultiple site organization consisting of ambulatory clinics and hospital sitesin [place], [place], [place] and [place]. This disclosure is being madepursuant to the Care Everywhere program and may not contain all information available regarding this patient. 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 Gender Identity Not on file Sexual Orientation [...] 9:11 PM CDT Height 167.6 cm (5' 6) 12/07/2021 9:11 PM CDT Body Mass Index 22.6 12/07/2021 9:11 PM CDT Plan of Treatment Health Maintenance Due Date Last Done Comments HIV SCREENING 2005 HEPATITIS C SCREENING 10/29/2008 DTAP/TDAP/TD VACCINES (1 - Tdap) 2009 HEPATITIS B VACCINE (1 of 3 - 19+ 3-dose series) 2009 PNEUMOCOCCAL VACCINE (1 of 2 - PCV) 2009 PAP SMEAR 11/04/2011 COVID-19 VACCINE (3 - 2023-2 5 season) [...] age to complete this topic Care Teams Vet Tech Relationship Specialty Start Date End Date Zari Alves MD [address] [place] [phone] PCP - General Pediatrics 04/10/12
--- OUTSIDE RECORDS SUMMARY | 2024-10-23 13:55 | XMS_ITS | Clinical Summary ---
Author Organization [facility] [facility] Address [address] 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
--- OUTSIDE RECORDS SUMMARY | 2024-10-23 13:55 | XMS_ITS | Clinical Summary ---
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 Gender Identity Not on file Sexual Orientation [...] 8:06 AM CDT Height 167.6 cm (5' 6) 11/29/2023 8:06 AM CDT Body Mass Index 21.47 11/29/2023 8:06 AM CDT Plan of Treatment Health Maintenance Due Date Last Done Comments Cervical Cancer Screening 1990 Depression Screening 1990 Hepatitis C Screening 1990 Varicella Vaccines (1 of 2 - 13+ 2-dose series) 11/04/2003 Regular Well Visit/Exam 18-64 2008 Influenza Vaccine (Season Ended) 2025 02/21/2018 DTaP/Tdap/Td Vaccine (7 - Td or Tdap) 12/09/2031 12/08/2021, 11/25/1995, 05/15/1992, Additional history exists Hepatitis B Screening Completed 01/17/2001 , 07/18/2000, 06/15/2000 HPV Vaccines Aged Out No longer eligi ble based on patient's age to complete this topic Pneumococcal vaccine <65 Aged Out No longer eligible based on patient's age to complete this topic Insurance [employer] Care Teams Budget Consultant Relationship Specialty Start Date End Date Uma Quintanilla MD PCP - General 04/10/19
--- OUTSIDE RECORDS SUMMARY | 2024-10-23 13:55 | XMS_ITS | Referral Summary ---
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
--- OUTSIDE RECORDS SUMMARY | 2024-10-23 13:55 | XMS_ITS | Patient Health Record ---
Author Organization [employer] Address [address] [place] [address] Care Team Providers Care Hvac Refrigeration Technician Name Role Phone Uma Quintanilla MD Primary Care Provider Payam Almonte Unavailable [phone] Allergies No Known Allergies Reason For Referral No Information Medications Medication [...] Problem Status W/U Status Risk Notes Problem 132966106 Bloating (R14.0) Active confirmed Problem 55722960 Dysphagia (R13.10) Active confirmed Problem 3554864 Nonulcer dyspepsia (K30) Active confirmed Problem 84925463 Nausea and vomiting (R11.2) Active confirmed Problem 29303682 Steatorrhea (K90.9) Active confirmed Problem 337086992 Low platelet count (D69.6) Active confirmed Plan Of Treatment Pending Test Test Name Order Date Upper Endoscopy 02/16/2019 Initiate SIBO 01/13/2023 Future Test Test Name Order Date CBC With Differential/Platelet 4 Insurance Providers Payer Name Payer Address Payer Phone Subscriber Number Group Number Insured Name Patient Relationship to Insured Coverage Start Date Coverage End Date Cigna Choice Fund Open Access Plus E2 [address] [employer] [place] [id number] Rosalind Aguirre Self - patient is the insured Medical (General) History Medical History History ICD Code GERD Surgical History Surgery Date(Month/Year) Endoscopy:Normal exam. 03/2019 Suction Curettage for Axillary Hyperhidr osis
--- OUTSIDE RECORDS SUMMARY | 2024-10-23 13:55 | XMS_ITS | Encounter Summary ---
Author Organization [employer] Address 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 [facility] To inquire about any potential cross-reactivity of [...] SYSTEM 12/16/2006 10:2 6 PM CDT Result [facility] Richard Kaminski NP URINE ORDERABLES Edited Performing Organization Address [facility] Number INTERFACE SYSTEM Refer to clinic/hospital department [...] analytes. 12/16/2006 10:2 6 PM CDT Result [facility] Richard Kaminski NP URINE ORDERABLES Edited Performing Organization Address [facility] Phone Number INTERFACE SYSTEM Refer to clinic/hospital department * (ABNORMAL) SALICYLATE LEVEL (12/16/2006 10:26 PM CDT) SALICYLATE LEVEL <0.8(L) 2.0 - 25.0 mg/dL INTERFACE SYSTEM 12/16/2006 10:2 6 PM CDT Result [facility] Richard Kaminski NP CHEMISTRY ORDERABLES Edited Performing Organization Address [facility] Phone Number INTERFACE SYSTEM Refer to [...] and non- Americans is available on the [facility] Intr[employer] at: [email or web address] Select: Lab Policies and Procedures Select: Reference Ranges - GFR 12/16/2006 10:2 6 PM CDT Richard Kaminski NP CHEMISTRY ORDERABLES Edited Performing Organization Address [facility] Co de Phone Number INTERFACE SYSTEM Refer to clinic/hospital department * (ABNORMAL) ACETAMINOPHEN LEVEL (12/16/2006 10:26 PM CDT) ACETAMINOPHEN LEVEL <0.7(L) 10.0 - 20.0 ug/mL INTERFACE SYSTEM 12/16/2006 10:2 6 PM CDT Richard Kaminski ELECTRICAL ENGINEERING INTERN CHEMISTRY ORDERABLES Edited Performing Organization Address [facility] Co de Phone Number INTERFACE SYSTEM [...]
[2024-10-23 14:08] LABS: Alanine Aminotransferase 18 U/L (6-35); Aspartate Amino Transferase 25 U/L (14-36)
== END 2024-10-23 13:20 | disposition home or self-care (01) ==
LOC: ANHLAB 13:21
PROVIDERS: PCP Family Medicine; Visit Provider Podiatrist Foot & Ankle Surgery
DX: B35.1 Tinea unguium (principal)
CPT/HCPCS: 36415; 84450; 84460